=== PATIENT | female | born 1995 | race Two or more races ===

== ENCOUNTER 2025-01-15 14:34 | Outpatient (CLI) | payer OTHER | END 2025-01-15 14:37 | disposition home or self-care (01) | LOC: PRENATAL 14:34 | PROVIDERS: ATTEND Obstetrics & Gynecology Maternal & Fetal Medicine | DX: O44.02 Complete placenta previa NOS or without hemorrhage, second trimester (principal); O34.12 Maternal care for benign tumor of corpus uteri, second trimester; Z3A.23 23 weeks gestation of pregnancy ==